=== PATIENT | male | born 1960 | race African-American/Black ===

== ENCOUNTER 2024-07-20 19:04 | Emergency (ER) | payer OTHER ==
[~2024-07-20] VITALS: Ht 172.7 cm; Wt 173.9 kg
--- NOTE | 2024-07-20 19:44 | ED.PDOC ---
Musculoskeletal HPI Comments Gene Sherwood is a 63-year-old male patient who presents to ED referred from [facility] doctor due to lower limb extremity swelling which has been occurring for approximately one month per patient, associated he also is complaining of frequent falls with no loss of consciousness and unintentional weight gain of approximately 100 lb (per this has been occurring for the past 10 years, but got worse in the past six months since patient had right eye surgery due to glaucoma and is legally blind and can not drive). Patient is practically bed- bound, he has poor hygiene since he can't bathe on his own (does not complete routine daily activities alone). Denies palpitation, syncope, chest pain, dyspnea, nausea, vomiting, diarrhea, sick contacts, recent travel and motor or sensory deficits. Past medical history: Hypertension, prediabetes, dyslipidemia, right eye glaucoma legally blind from , cognitive impairment Surgical history: Right eye surgery Family history: Mother of brain cancer, brother of an unknown cancer Social history: [place] in [place] . He is a retired deputy officer, he had to medically retired due to cognitive impairment. After fdc he presented ethanol abuse (approximately one bottle of hard liquor every day), quit six months ago since he can not drive a vehicle anymore due to being legally blind. Denies tobacco and other drug abuse. Allergies: Denies Home medication: Lisinopril 40 mg p.o. daily, hydralazine 25 mg p.o. daily, amlodipine 5 mg p.o. daily Chief Complaint: Cellulitis Time Seen by MD: 19:07 Primary Care Provider: GILLESPIE Reviewed Notes: Nurses Notes Allergies: Coded Allergies: NO KNOWN ALLERGIES (Unverified , 07/20/24) Mode of Arrival: Wheelchair Physical Exam General Appearance: No Apparent Distress, Obese HEENT: Other (Glaucoma right eye) Neck: Full Range of Motion, Non-Tender, Normal, Normal Inspection Respiratory: Chest Non-Tender, Lungs Clear, No Accessory Muscle Use, No Respiratory Distress, Normal Breath Sounds Cardiovascular: No Edema, No JVD, No Murmur, No Gallop, Normal Peripheral Pulses, Regular Rate/Rhythm Breast Exam: Deferred Gastrointestinal: No Organomegaly, Non Tender, No Pulsatile Mass, Normal Bowel Sounds, Soft, Other (Morbidly obese) Genitalia: Deferred Pelvic: Deferred Rectal: Deferred Extremities: Inflammation, Leg edema, Pedal edema, Other (Macerated bilateral feet) Neurologic: Alert, clinical data assistant II-XII nml as Tested, No Motor Deficits, Normal Affect, Normal Mood, No Sensory Deficits Cerebellar Function: Normal Reflexes: Normal Skin: Mottled, Warm, Wounds Lymphatic: No Adenopathy Was a procedure done? Was a procedure done?: No EKG EKG : Comments Sinus rhythm at 75 beats per minute narrow QRS no ST alteration Differential Diagnosis EXT Differential Diagnosis: Cellulitis, CHF, Deep Vein Thrombosis Other Differential Diagnosis Liver cirrhosis, chronic kidney failure X-Ray, Labs, Meds, VS Vital Signs Date Time Temp Pulse Resp B/P (MAP) Pulse Ox O2 Delivery O2 Flow Rate FiO2 07/20/24 19:39 97 07/20/24 19:05 97.0 102 20 174/103 (126) 97 Lab Test 07/20/24 21:40 07/20/24 19:43 07/20/24 19:36 Range/Units Lactic Acid Level 1.3 2.7 *H 0.4-2.0 mmol/L Troponin I High Sensitivity 14 13 </=54 ng/L Blood Gas Specimen Type Arterial Blood Gas Sample Site Left radial Blood Gas Patient Temperature 37.0 Arterial Blood Date Drawn [id number] Arterial Blood pH 7.430 7.350-7.450 Arterial Blood Partial Pressure CO2 38.0 35.0-48.0 mmHg Arterial Blood Partial Pressure O2 67.7 L 83.0-108.0 mmHg Arterial Blood HCO3 24.7 21.0-28.0 mmol/L Arterial Blood Oxygen Saturation 94.1 94.0-98.0 % Arterial Blood Base Excess 0.6 -2.0-3.0 mmol/L Arterial Blood Oxyhemoglobin 92.5 L 94.0-98.0 % Arterial Blood Carboxyhemoglobin 1.2 0.5-1.5 % Arterial Blood Methemoglobin 0.5 0.0-1.5 % Rehan Test Yes Blood Gas Total Hemoglobin 14.60 13.5-17.5 g/dL Blood Gas Liter Flow 0.00 Blood Gas Modality Room air FiO2 % 21.0 White Blood Count 5.8 4.4-10.8 10^3/uL Red Blood Count 5.56 4.5-5.90 10^6/uL Hemoglobin 13.7 13.5-17.5 g/dL Hematocrit 42.7 41.0-53.0 % Mean Corpuscular Volume 76.8 L 80.0-100.0 fL Mean Corpuscular Hemoglobin 24.6 L 28.0-32.0 pg Mean Corpuscular Hemoglobin Concent 32.0 32.0-36.0 g/dL Red Cell Distribution Width 15.8 H 11.8-14.3 % Platelet Count 245 140-450 10^3/uL Mean Platelet Volume 7.7 6.9-10.8 fL Neutrophils (%) (Auto) 63.5 37.0-80.0 % Lymphocytes (%) (Auto) 23.7 10.0-50.0 % Monocytes (%) (Auto) 10.3 0.0-12.0 % Eosinophils (%) (Auto) 1.6 0.0-7.0 % Basophils (%) (Auto) 0.9 0.0-2.0 % Neutrophils # (Auto) 3.7 1.6-8.6 10 ^3/uL Lymphocytes # (Auto) 1.4 0.4-5.4 10 ^3/uL Monocytes # (Auto) 0.6 0-1.3 10 ^3/uL Eosinophils # (Auto) 0.1 0-0.8 10 ^3/uL Basophils # (Auto) 0.1 0-0.2 10 ^3/uL Nucleated Red Blood Cells 0.3 % Prothrombin Time 10.7 9.3-11.8 sec Prothrombin Time INR 1.01 0.9-1.15 Activated Partial Thromboplast Time 27.3 24.5-34.5 SEC D-Dimer, Quantitative 0.75 H 0.0-0.49 mg/L FEU Sodium Level 138 136-145 mmol/L Potassium Level 4.0 3.5-5.1 mmol/L Chloride Level 104 98-107 mmol/L Carbon Dioxide Level 24 20-31 mmol/L Anion Gap 10 5-15 Blood Urea Nitrogen 10 9-23 mg/dL Creatinine 0.96 0.700-1.30 mg/dL Glomerular Filtration Rate Calc 89 >90 mL/min BUN/Creatinine Ratio 10.4 10.0-20.0 Serum Glucose 96 74-106 mg/dL Calcium Level 9.3 8.7-10.4 mg/dL Phosphorus Level 3.1 2.4-5.1 mg/dL Magnesium Level 1.9 1.6-2.6 mg/dL Total Bilirubin 0.3 0.2-1.0 mg/dL Aspartate Amino Transferase (AST) 76 H 13-40 U/L Alanine Aminotransferase (ALT) 48 H 7-40 U/L Alkaline Phosphatase 92 46-116 U/L B-Type Natriuretic Peptide 13.98 0-100 pg/mL Total Protein 7.6 5.7-8.2 g/dL Albumin 4.3 3.2-4.8 g/dL Plasma/Serum Blood Alcohol 3.2 <10 mg/dL X-Ray, Labs, Meds, VS Comment Review vital signs, chest x-ray, lower limb ultrasound and laboratory results. Time of 1ST Reevaluation: 20:53 Reevaluation 1ST: Unchanged Patient Education/Counseling: Diagnosis, Treatment, Prognosis Family Education/Counseling: Diagnosis, Treatment, Prognosis Departure 1 Departure Time of Disposition: 20:53 Impression: Primary Impression: Cellulitis Additional Impression: Morbid obesity Disposition: 30 STILL A PATIENT Condition: Serious Additional Instructions: Review of vital signs, physical examination and complementary workup results. Patient's clinical status compatible with sepsis secondary to bilateral foot cellulitis. Patient will benefit from IV antibiotics and wound care of bilateral limbs. Have informed patient and family of his status, he agree with plan of action. Have ordered blood, urine and wound culture. Patient may need additional admission workup (IE lower limb CT to evaluate gangrene and arterial duplex of lower limbs to evaluate blood flow), patient has poor prognosis. Will plan to transfer to [facility] (stable for transfer). Communicated with [facility] who accepted patient. Case tracking number : [id number] Critical Care Note Critical Care Time?: No Stability Stability form required: No Heart Score Heart Score: Heart Score Response (Comments) Value History N/A 0 EKG N/A 0 Age N/A 0 Risk Factors N/A 0 Troponin N/A 0 Total 0 RAMIREZ ENGLE RESIDENT Jul 20, 2024 19:43
[2024-07-20 19:47] LABS: Base Excess 0.6 mmol/L (-2.0-3.0)
[2024-07-20 19:55] LABS: Basophils # (auto) 0.1 10 ^3/uL (0-0.2); Eosinophils # (auto) 0.1 10 ^3/uL (0-0.8); Hemoglobin 13.7 g/dL (13.5-17.5); Monocytes # (auto) 0.6 10 ^3/uL (0-1.3); Nucleated Red Blood Cells % 0.3 %
[2024-07-20 19:56] LABS: Basophils % (auto) 0.9 % (0.0-2.0); Eosinophils % (auto) 1.6 % (0.0-7.0); Hematocrit 42.7 % (41.0-53.0); Lymphocytes # (auto) 1.4 10 ^3/uL (0.4-5.4); Lymphocytes % (auto) 23.7 % (10.0-50.0); Mean Corpuscular Hemoglobin 24.6 pg (28.0-32.0); Mean Corpuscular Volume 76.8 fL (80.0-100.0); Monocytes % (auto) 10.3 % (0.0-12.0); Neutrophils # (auto) 3.7 10 ^3/uL (1.6-8.6); Neutrophils % (auto) 63.5 % (37.0-80.0); Platelet Count (auto) 245 10^3/uL (140-450); Red Blood Cells 5.56 10^6/uL (4.5-5.90); Red Cell Distribution Width 15.8 % (11.8-14.3); White Blood Cell 5.8 10^3/uL (4.4-10.8)
[2024-07-20 20:15] LABS: INR 1.01 (0.9-1.15); Partial Thromboplastin Time 27.3 SEC (24.5-34.5); Prothrombin Time 10.7 sec (9.3-11.8)
[2024-07-20 20:24] LABS: Albumin 4.3 g/dL (3.2-4.8); Alkaline Phosphatase 92 U/L (46-116); Anion Gap 10 (5-15); BUN/Creatinine Ratio 10.4 (10.0-20.0); Bilirubin, Total 0.3 mg/dL (0.2-1.0); Blood Urea Nitrogen 10 mg/dL (9-23); Calcium 9.3 mg/dL (8.7-10.4); Carbon Dioxide 24 mmol/L (20-31); Chloride 104 mmol/L (98-107); Glucose 96 mg/dL (74-106); Sodium 138 mmol/L (136-145); Total Protein 7.6 g/dL (5.7-8.2)
[2024-07-20 20:26] LABS: Alanine Aminotransferase 48 U/L (7-40); Aspartate Aminotransferase 76 U/L (13-40)
[2024-07-20 20:29] LABS: Lactic Acid w/Reflex 2.7 mmol/L (0.4-2.0)
--- NOTE | 2024-07-20 20:32 | DVH ---
CLINICAL HISTORY: cellulitis TECHNIQUE: Color and duplex doppler imaging of the bilateral lower extremity veins was performed. Ves rafael compression if possible was also performed. WID: COMPARISON: None FINDINGS: Right Lower Extremity: Right common femoral vein: Normal compressibility and flow. Right femoral vein: Normal compressibility and flow. Right popliteal vein: Normal compressibility and flow. Proximal calf veins are normally compressible. Left Lower Extremity: Left common femoral vein: Normal compressibility and flow. Left femoral vein: Normal compressibility and flow. Left popliteal vein: Normal compressibility and flow. Proximal calf veins are normally compressible. Mild subcutaneous edema in the bilateral calves IMPRESSION: 1. NO SONOGRAPHIC EVIDENCE FOR DEEP VENOUS THROMBOSIS IN THE BILATERAL LOWER EXTREMITY VEINS. 2. Mild subcutaneous edema in the bilateral calves
--- NOTE | 2024-07-20 20:34 | DVH ---
CHEST RADIOGRAPH Indication: cellulitis Technique: Single frontal view of the chest was obtained Comparison: None FINDINGS: Lines and Tubes: None Lungs: No focal consolidation. Pleura: No effusion. No pneumothorax. Cardiomediastinal contours: Unremarkable Bones: No acute osseous abnormality. IMPRESSION: 1. No acute cardiopulmonary disease.
[2024-07-20 20:38] LABS: Magnesium 1.9 mg/dL (1.6-2.6)
[2024-07-20 20:39] LABS: Phosphorus 3.1 mg/dL (2.4-5.1)
[2024-07-20] MEDS ORDERED: VANCOMYCIN PER PHARMACY 0 MG IV SCH (21:15)
[2024-07-20] MEDS ORDERED: hydrALAZINE HCL 20 MG/ML VL IV PRN (21:15)
[2024-07-21 04:46] VITALS: BP 168/90; PULSE 91; RESP 16; TEMP 98; O2SAT 97
[2024-07-21] MEDS: VANCOMYCIN 1GM/250ML KIT 250 ML IV ONE ×2 (05:43→05:45)
[2024-07-21] MEDS: ENOXAPARIN SOD 40 MG/0.4 ML SYRINGE SC ONE (05:44)
[2024-07-21] MEDS: PIPERACILLIN-TAZOB 3.375GM 100 ML IV SCH (05:44)
[2024-07-21] MEDS: PIPERACILLIN-TAZOB 3.375GM 100 ML IV ONE (05:44)
--- NOTE | 2024-07-21 06:45 | ECG ---
[facility] Test Date: 2024-07-20 Test Time: 19:39:06 Pat Name: MIAN REID Department: ED Room: Gender: M [employer]: : 1960 Requested By: POOL JOHNSON Order Number: [id number] Reading MD: Mason Birmingham Measurements Intervals [place] Rate: 97 P: 62 OK: 149 QRS: 22 QRSD: 89 T: 35 QT: 347 QTc: 441 Interpretive Statements Sinus rhythm Left atrial enlargement Borderline T wave abnormalities Baseline wander in lead(s) III,V2 Electronically Signed On 07-21-2024 13:28:02 PST by Mason Birmingham Please click the below link to view image of tracing.
[2024-07-21] MEDS ORDERED: PANTOPRAZOLE 40 MG/10 ML VIAL INJ IV SCH (10:00)
[2024-07-21] MEDS ORDERED: ENOXAPARIN SOD 40 MG/0.4 ML SYRINGE SC SCH (10:00)
== END 2024-07-21 05:42 | disposition short-term general hospital (02) ==
LOC: ER 19:04
DX: L03.90 Cellulitis, unspecified (principal); E78.5 Hyperlipidemia, unspecified; E66.01 Morbid (severe) obesity due to excess calories; I50.9 Heart failure, unspecified; Z74.01 Bed confinement status; Z79.899 Other long term (current) drug therapy
CPT/HCPCS: 36415; 36600; 71045; 80053; 80320; 82805; 83605; 83735; 83880; 84100; 84484; 85025; 85379; 85610; 85730; 87040; 93005; 93970